=== PATIENT | female | born 1995 ===

== ENCOUNTER 2024-01-23 12:46 | Emergency (ER) | payer OTHER, SELFPAY ==
[2024-01-23 13:02] VITALS: BP 140/71; PULSE 83; RESP 19; TEMP 36.6; O2SAT 98; BMI 32.9
--- NOTE | 2024-01-23 13:07 | ED_ITS ---
HPI - Dental/Oral General Chief complaint: Dental/Oral Stated complaint: mouth pain infection Time Seen by Provider: 01/23/24 13:19 Source: patient Mode of arrival: ambulatory Limitations: no limitations History of Present Illness ED Provider: SUZI JOSÉ PA-C HPI Narrative: 28 year old female with no significant pmhx presents to the ED today for evaluation of left upper dental pain x2 weeks. Does not recall breaking the tooth. Has not noticed any abscess, swelling or draining from the tooth. Has not seen a dentist in some time. Admits she was seen at [facility] yesterday however left due to long wait times. Attempted to make an appointment with a dentist this morning however they do not take her insurance. Denies fever, chills, sore throat, dysphagia, odynophagia neck pain/swelling. MD Complaint: tooth pain Related Data Previous Rx's ?Medication ?Instructions ?Recorded amoxicillin 875 mg-potassium 1 tab PO BID 10 days #20 tabs 01/23/24 clavulanate 125 mg tablet tramadol 50 mg tablet 50 mg PO BID PRN pain (scale score 01/23/24 7-10) #6 tabs Allergies Allergy/AdvReac Type Severity Reaction Status Date / Time No Known Allergies Allergy Verified 01/23/24 13:05 Review of Systems 2 Review of Systems: Constitutional: No fever, chills, fatigue, night sweats, weight changes ENT/Mouth: No ear pain, hearing loss, nasal congestion, sinus pain, rhinorrhea, sore throat, odynophagia, dysphagia +dental pain Eyes: No eye pain, swelling, redness, vision changes, discharge Cardio: No chest pain, palpitations, RIVERO, orthopnea, peripheral edema Pulm: No SOB, cough, sputum, wheezing, dyspnea, hemoptysis GI: No nausea, vomiting, hematemesis, abdominal pain, diarrhea, constipation, hematochezia, melena : No irregular bleeding, dysuria, frequency, urgency, hesitancy, hematuria, flank pain, urinary flow changes, urinary incontinence or retention MSK: No back pain, neck pain, joint pain, myalgias Skin: No lesions, rashes Neuro: No weakness, numbness, paresthesias, LOC, dizziness, headache Psych: No anxiety/panic, depression, SI/HI, AH/VH All other systems reviewed and are negative. [facility] Past Medical History Attestation statement: The following information was validated with the patient. Source: old records reviewed and nursing notes reviewed Social History Social History Advance Directives: No Advance Directives Information Provided: Yes Physical Exam 2 Vital Signs: Vital Signs: Last Vital Signs Temp 98 F 01/23/24 13:22 Pulse 83 01/23/24 13:22 Resp 19 01/23/24 13:22 BP 140/71 H 01/23/24 13:22 Pulse Ox 98 01/23/24 13:22 O2 Del Method Room Air 01/23/24 13:22 BMI result Body Mass Index 32.9 Vital signs stable, afebrile. Const: General: cooperative, comfortable and no acute distress O rientation/consciousness: patient oriented x3 Limitations: no limitations HEENT: Other: + No facial edema. Tongue and lips wnl + few dental caries and poor dentition. left upper molar intact with localized periapical swelling to the buccal ginginva. No pointing. No active bleeding/ discharge. TTP. No palpable fluctuance. + No edema to buccal mucosa + Posterior oropharynx without erythema/ edema. Uvula midline. Controlling secretions and speaking in complete sentences + No submandublar or submental LAD + No cervical LAD, no anterior neck swel ling Head: Yes normal to inspection, Yes No palpable skull fracture present, Yes normocephalic and Yes atraumatic Ears: hearing grossly normal bilaterally, external ears normal, TM's normal bilaterally, EAC's normal, mastoids normal and no periauricular adenopathy Teeth image: 1. Eyes: General: appearance normal, both eyes and all related structures C onjunctivae: conjunctivae normal Sclerae: sclerae normal Pupils: Equal, round and reactive pupils present Neck: Neck: Yes normal visual inspection, Yes full ROM, Yes no lymphadenopathy and Yes no meningeal signs Resp: Effort & Inspection: normal respiratory effort and no stridor A uscultation: clear to auscultation bilaterally Cardio: Rate: regular rate Rhythm: regular rhythm Skin: General skin exam: no rashes or lesions noted Neuro: General: patient oriented x3, gait normal and no meningeal signs C ranial nerves: Yes Equal, round and reactive pupils present Course Course Course Narrative: 1317-- Patient noted to have dental infection. There is no evidence of abscess that warrants drainage at this time. There is no anterior neck swelling to suggest ludwigs angina. Will treat patient's pain and patient will be discharged home on Augmentin to ensure there is no worsening infection for follow-up with dentist. Patient advised to follow up with dentist this week. A referral has been provided. Patient has remained stable throughout ED visit today. I discussed worrisome signs and symptoms and when to return to the ED. All questions answered at this time. Patient is agreeable with disposition and stable for discharge. Medical Decision Making Medical Decision Making [facility] Narrative: 28 year old female with no significant pmhx presents to the ED today for evaluation of left upper dental pain x days. Patient is slightly hypertensive to 140/71. Vitals otherwise WNL. She is afebrile. She is nontoxic-appearing and in no acute distress. On exam, No facial edema. Tongue and lips wnl. few dental caries and poor dentition. left upper molar intact with localized periapical swelling to the buccal ginginva. No pointing. No active bleeding/ discharge. TTP. No palpable fluctuance. No edema to buccal mucosa. Posterior oropharynx without erythema/edema. Uvula midline. Controlling secretions and speaking in complete sentences. No submandublar or submental LAD. No cervical LAD, no anterior neck swelling Differential includes dental infection. Unlikely mono, herpes, periapical abscess, sialadenitis, sialolithiasis, [employer], retropharyngeal abscess, deep neck infection, osteomyelitis, facial cellulitis/ abscess, lymphoma. Plan for pain control and discharge home with antibiotics and dentist follow up. Differential Diagnosis Differential Diagnoses: The differential diagnosis associated with the presentation includes as above. Admission/Observation Not indicated. Tests considered The following testing was considered but not selected: I considered obtaining a CT of the soft tissues neck however these is no evidence of ludwigs angina or concern for deep tissue infection. Not warranted at this time. Prescription Management I considered prescription management with: Pain Medication (Tramadol) and Antibiotic (Augmentin) Social Determinants Patient?s care significantly limited by Social Determinants of Health including: Other Social Determinant of Health Critical Care Time Critical Care Time Critical Care Time: No Discharge Plan Discharge Clinical Impression: Toothache Patient Disposition: Home, Self-Care Instructions: Toothache (ED) Additional Instructions: You were seen in the ED today for tooth pain. You may continue taking Tylenol and ibuprofen as needed at home for pain/discomfort. Tramadol is a controlled pain medication that has been sent to your pharmacy for you to take for breakthrough pain. Augmentin is an antibiotic that has been sent to your pharmacy. Take this twice daily for 10 days to treat dental infection. Do not stop taking this early or skip any doses as this may cause infection to worsen or return. Return with new or worsening symptoms such as fever, increased swelling or difficulty swallowing. In the case of an emergency call 911. You need to follow-up with dentist for further management. Call [facility] tomorrow morning. they are currently taking new patients. [id number] [facility] [phone] Prescriptions: New amoxicillin-pot clavulanate 875-125 mg tablet 1 tab PO BID 10 Days Qty: 20 0RF tramadol 50 mg tablet 50 mg PO BID PRN (Reason: pain (scale score 7-10)) Qty: 6 0RF Interventions: ED Discharge Assessment Last Done: 01/23/24 13:22 Discharge Date/Time: 01/23/24 13:22 Print Language: [place]uran
[2024-01-23 13:22] VITALS: BP 140/71; PULSE 83; RESP 19; TEMP 36.6; O2SAT 98
== END 2024-01-23 13:22 | disposition home or self-care (01) ==
PROVIDERS: Emergency Provider Emergency Medicine
DX: K08.89 Other specified disorders of teeth and supporting structures (principal); Z79.899 Other long term (current) drug therapy
CPT/HCPCS: 99282; 99283